=== PATIENT | female | born 1970 | race Caucasian/White ===

== ENCOUNTER → 2016-03-26 | Outpatient (CLI) | payer BC ==
--- NOTE | 2016-03-26 17:07 | Diagnostic Imaging Report ---
EXAM: Bilateral screening mammogram The current study was also evaluated with a Computer Aided Detection (CAD) system. Indication: Screening. No current complaints stated on the questionnaire. COMPARISON: 07/12/2013. FINDINGS: The breasts are composed of heterogeneously dense parenchyma which may decrease mammographic sensitivity. Stable circumscribed masses in the left breast with slight changes in the size of the cysts noted from the prior exam. Similar findings with circumscribed more prominent the lesions in the right breast however seen compared to the previous study. No irregular mass identified. IMPRESSION: Findings compatible with fibrocystic change in the breasts bilaterally. No suspicious mass. Annual screening mammogram recommended. BI-RADS 2. ACR BI-RADS Category 2: Benign findings. Result letter will be mailed to the patient. Note: At least 10% of breast cancer is not imaged by mammography. Dictated by: Dictated on workstation # [id number]
== END ==
LOC: RAD 15:55
PROVIDERS: ATTEND Obstetrics & Gynecology
DX: Z12.31 Encounter for screening mammogram for malignant neoplasm of breast (principal)

== ENCOUNTER → 2018-02-04 | Outpatient (CLI) | payer BC, OTHER ==
--- NOTE | 2018-02-04 17:34 | Diagnostic Imaging Report ---
PATIENT HISTORY: POSSIBLE MIRENA EXPULSION. Irregular vaginal bleeding. TECHNIQUE: Transabdominal and transvaginal ultrasound of the pelvis. COMPARISON: None. FINDINGS: The uterus measures 9.6 x 6.5 x 5.1 cm which is normal. The intrauterine device is seen, and appears to be in expected position. No free fluid is seen. The endometrium is unremarkable and measures 6 mm in thickness. The right ovary is not seen, likely due to bowel gas. No masses are seen in the right adnexa. The left ovary measures 4.5 x 2.6 x 1.8 cm and demonstrates a mildly complicated cyst which measures up to 2.9 cm in size. IMPRESSION: 1. The intrauterine device appears to be in expected position. 2. Mildly complicated 2.9 cm left ovarian cyst. The right ovary was not seen. Dictated by: Dictated on workstation # [id number]
== END ==
LOC: RAD 14:34
PROVIDERS: ATTEND Family Medicine
DX: N83.202 Unspecified ovarian cyst, left side (principal); Z97.5 Presence of (intrauterine) contraceptive device
CPT/HCPCS: 76830; 76856

== ENCOUNTER → 2019-08-17 | Outpatient (CLI) | payer SELFPAY ==
--- NOTE | 2019-08-17 11:39 | Diagnostic Imaging Report ---
PROCEDURE: MRI right joint lower extremity without contrast. TECHNIQUE: Multiplanar, multisequence non contrast-enhanced MRI of the right lower extremity was accomplished. 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 EXAMINATION: Right knee MRI from 08/17/2019 FINDINGS: Diffuse tear of the posterior horn of the medial meniscus is noted which appears degenerative in nature. The lateral meniscus demonstrates some heterogeneity along the anterior horn likely extending to the tibial surface consistent with a small tear as well. The extensor mechanism ACL and PCL intact. The lateral collateral ligamentous complex is intact the MCL appears intact although there is adjacent edema which could be due to a sprain. There is mild thinning of the cartilage in the medial compartment. Minimal thinning laterally also noted. There is a focal defect along the cartilage overlying the lateral patellar facet which extends to the cortex with a subchondral cystic area noted in the patella itself associated edema is present. There is a small joint effusion. There is a slitlike Mccall's cyst. IMPRESSION: 1. Diffuse tear involving the posterior horn of the medial meniscus with a likely small tear of the anterior horn of the lateral meniscus. 2. 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 3. Likely mild MCL sprain with remaining ligaments and tendons intact. Other findings as above. Dictated by: Dictated on workstation # [id number]
== END ==
LOC: RAD 09:07
PROVIDERS: ATTEND Nurse Practitioner Family
DX: S83.241A Other tear of medial meniscus, current injury, right knee, initial encounter (principal); M17.11 Unilateral primary osteoarthritis, right knee; X50.9XXA Other and unspecified overexertion or strenuous movements or postures, initial encounter; Y93.41 Activity, dancing
CPT/HCPCS: 73721

== ENCOUNTER → 2019-08-31 | Outpatient (CLI) | payer OTHER | LOC: ORTHO 09:33 | PROVIDERS: ATTEND Orthopaedic Surgery | DX: S83.241A Other tear of medial meniscus, current injury, right knee, initial encounter (principal); S83.411A Sprain of medial collateral ligament of right knee, initial encounter; M76.891 Other specified enthesopathies of right lower limb, excluding foot; M17.11 Unilateral primary osteoarthritis, right knee | CPT/HCPCS: 99203 ==

== ENCOUNTER → 2019-12-14 | Outpatient (CLI) | payer OTHER ==
--- NOTE | 2019-12-18 08:46 | Diagnostic Imaging Report ---
EXAMINATION: Digital mammogram bilateral screening with CAD. INDICATION: Screening. COMPARISON: This study was compared to the prior exams of 03/26/2016 and 07/12/2013. PERSONAL HISTORY: At this time, there are no current complaints. FINDINGS: The fibroglandular tissue in both breasts is heterogeneously dense. This does limit the sensitivity of this exam. In the interval since the prior study, a 1.8 cm well-circumscribed rounded asymmetry has developed in the medial aspect of the left breast. This lesion is located in the 9-10 o'clock position at middle depth. I suspect that this is a cyst. Even so, I would recommend that ultrasound be performed to confirm this. There are also one or two subcentimeter rounded asymmetries in the right breast. These seem similar to the prior exam and are probably related to cyst formation as well. There is no primary or secondary sign of malignancy identified. IMPRESSION: Ultrasound would be recommended for further evaluation of the newly developed rounded asymmetry in the 9-10 o'clock position of the left breast. ACR BI-RADS Category 0: Incomplete. (Needs additional imaging evaluation). Result letter will be mailed to the patient. Note: At least 10% of breast cancer is not imaged by mammography. Dictated by: Dictated on workstation # [id number]
== END ==
LOC: RAD 15:00
PROVIDERS: ATTEND Obstetrics & Gynecology
DX: Z12.31 Encounter for screening mammogram for malignant neoplasm of breast (principal)
CPT/HCPCS: 77063; 77067

== ENCOUNTER → 2019-12-22 | Outpatient (CLI) | payer OTHER ==
--- NOTE | 2019-12-22 12:25 | Diagnostic Imaging Report ---
INDICATION: Left breast density. Patient presents for further evaluation. CORRELATION is made with screening mammogram from 12/14/2019. Sonographic interrogation of the inner left breast was performed. There is a large simple cyst at the 9 o'clock location, 3 cm from the nipple measuring 2.0 x 1.1 x 2.0 cm. This likely accounts for the mammographic density. This demonstrates posterior acoustic enhancement. No internal vascularity is seen. No solid mass is detected. There is a tiny adjacent cyst as well. IMPRESSION: BI-RADS Category 2 Simple cysts at the 9 o'clock location left breast accounting for the mammographic density. Patient may return to routine annual screening mammography. ACR BI-RADS Category 2: Benign findings. Result letter will be mailed to the patient. Note: At least 10% of breast cancer is not imaged by mammography. Dictated by: Dictated on workstation # [id number]
== END ==
LOC: RAD 11:00
PROVIDERS: ATTEND Obstetrics & Gynecology
DX: N60.02 Solitary cyst of left breast (principal)
CPT/HCPCS: 76642

== ENCOUNTER → 2020-01-17 | Outpatient (CLI) | payer OTHER ==
--- NOTE | 2020-01-17 10:22 | Diagnostic Imaging Report ---
INDICATION: Bilateral thumb pain for 9 months. TIME OF EXAM: 9:39 AM. TECHNIQUE: Multiple views of the bilateral hands were obtained. FINDINGS: There are mild degenerative changes at the 1st CMC joints bilaterally. The MCP joints are intact. There are some mild degenerative changes involving multiple DIP joints in the bilateral hands. No fractures are seen. The carpus is unremarkable. The distal radius and ulna are intact. IMPRESSION: Mild chronic changes. No acute bony abnormality is detected. Dictated by: Dictated on workstation # [id number]
== END ==
LOC: ORTHO 09:25
PROVIDERS: ATTEND Orthopaedic Surgery
DX: M19.042 Primary osteoarthritis, left hand (principal); M19.041 Primary osteoarthritis, right hand
CPT/HCPCS: 73130; G0463; 99213

== ENCOUNTER → 2020-07-10 | Outpatient (CLI) | payer OTHER ==
--- NOTE | 2020-07-10 11:21 | Diagnostic Imaging Report ---
INDICATION: Palpable lump left breast. COMPARISON: Correlation is made with the prior left breast ultrasound from 12/22/2019. FINDINGS: There is a simple cyst at the 9 o'clock location of the left breast 3 cm from the nipple measuring 2.0 x 1.3 x 1.8 cm, similar to the prior exam. No internal vascularity is seen. Evaluation of the area of new lump was performed which correlates to the 3 o'clock location 6 cm from the nipple. There is a simple cyst at this location measuring 1.8 x 1.6 x 2.2 cm. This demonstrates posterior acoustic enhancement. No internal vascularity is seen. IMPRESSION: Simple cyst at the 3 and 9 o'clock locations of the left breast. No concerning sonographic finding is identified. ACR BI-RADS Category 3: Probably benign findings. Dictated by: Dictated on workstation # [id number]
== END ==
LOC: RAD 10:15
PROVIDERS: ATTEND Obstetrics & Gynecology
DX: N60.12 Diffuse cystic mastopathy of left breast (principal)
CPT/HCPCS: 76642